=== PATIENT | female | born 1965 | race Caucasian/White ===

== ENCOUNTER 2018-03-01 11:42 | Emergency (ER) | payer MEDICAID ==
[~2018-03-01] VITALS: Ht 170.2 cm; Wt 104.0 kg
[2018-03-01 12:11] VITALS: BP 169/95
== END 2018-03-01 12:18 | disposition home or self-care (01) ==
LOC: ER 12:09
DX: I11.0 Hypertensive heart disease with heart failure (principal); I50.9 Heart failure, unspecified; I69.320 Aphasia following cerebral infarction
CPT/HCPCS: 99283